=== PATIENT | female | born 1945 | race Caucasian/White ===

== ENCOUNTER 2018-08-03 11:24 | Inpatient (IN) | payer MEDICARE, MEDICAID ==
[~2018-08-03] VITALS: Ht 154.9 cm; Wt 128.0 kg
[2018-08-03] MEDS ORDERED: RANI150T4 PO (11:49)
[2018-08-03] MEDS ORDERED: FLUO40CA2 PO (11:49)
[2018-08-03] MEDS ORDERED: TRAZ150T62 PO (11:49)
[2018-08-03] MEDS ORDERED: LOSA100T7 PO (11:49)
[2018-08-03] MEDS ORDERED: DIPH1TAB6 PO (11:49)
[2018-08-03] MEDS ORDERED: BUPR150T73 PO (11:49)
[2018-08-03] MEDS ORDERED: QUET50TA PO (11:49)
[2018-08-03] MEDS ORDERED: ASPI1CPM9 PO (11:49)
[2018-08-03] MEDS ORDERED: COLE1TAB2 PO (11:49)
[2018-08-03] MEDS ORDERED: BENZ1TAB61 PO (11:49)
[2018-08-03] MEDS ORDERED: ARIP15TA3 PO (11:49)
[2018-08-03] MEDS ORDERED: LEVO50TA5 PO (11:49)
[2018-08-03] MEDS ORDERED: GABA300C10 PO (11:49)
--- NOTE | 2018-08-03 11:52 | NUR ---
pt bib ems for sob, pt visiting from the [place] and has been having difficulty breathing since her arrival in [place]. this morning pt states increased work of breathing and call ems. upon arriving on scene ems found pt to be 80% on room air with minimal air movement throughout her lungs. they administered 1 breathing treatment which improved her lung sounds and saturations, but pt was still having increased work of breathing so pt placed on cpap with marked improved noted. pt vital signs were stable throughout transport after interventions. pt states no pulmonary or cardiac history. pt placed on hospital cpap and on room monitor. iv started and labs drawn. awaiting resulst and poc. will continue to monitor.
[2018-08-03 11:58] LABS: BASOPHILS # (AUTO) 0.01 x10^3/uL (0-0.1); BASOPHILS % (AUTO) 0 % (0-1); EOSINOPHILS # (AUTO) 0.14 x10^3/uL (0-0.4); EOSINOPHILS % (AUTO) 1 % (1-7); LYMPHOCYTES # (AUTO) 1.26 x10^3/uL (1-3.4); LYMPHOCYTES % (AUTO) 11 % (22-44); MD NO; MEAN CORPUSCULAR HEMOGLOBIN 30.8 pg (27.0-34.8); MEAN CORPUSCULAR VOLUME 93.1 fL (80-100); MEAN PLATELET VOLUME 8.1 fL (7.4-10.4); MONOCYTES # (AUTO) 0.63 x10^3/uL (0.2-0.8); MONOCYTES % (AUTO) 6 % (2-9); NEUTROPHILS # (AUTO) 9.12 x10^3/uL (1.8-6.8); NEUTROPHILS % (AUTO) 82 % (42-75); PLATELET COUNT 196 x10^3/uL (130-400); RED BLOOD COUNT 4.13 x10^6/uL (3.82-5.3); RED CELL DISTRIBUTION WIDTH 13.5 % (9.6-15.2)
[2018-08-03 12:06] LABS: ALBUMIN 3.3 g/dL (3.4-5.0); ANION GAP 6 mmol/L (5-15); CALCIUM 8.1 mg/dL (8.5-10.1); CHLORIDE 110 mmol/L (98-107); CREATININE 1.65 mg/dL (0.55-1.02); PROTHROMBIN TIME 10.6 Seconds (9.6-11.5)
[2018-08-03 12:11] LABS: TROPONIN I 0.561 ng/mL (0.000-0.045)
--- NOTE | 2018-08-03 12:15 | NUR ---
PT RESTING COMFORTABLY IN BED WITH FAMILY AT BEDSIDE. VITAL SIGNS STABLE. NO SIGNS OF DISTRESS NOTED. WILL CONTINUE TO MONITOR.
[2018-08-03] MEDS ORDERED: PLEASE ENTER ALLERGIES MC SCH (12:30)
[2018-08-03] MEDS ORDERED: HEPARIN 25,000 UNITS/500ML PMX 500 ML IV PRN (12:30)
[2018-08-03] MEDS ORDERED: HEPARIN 5,000 UNITS/ML, 1ML IV PRN (12:30)
[2018-08-03] MEDS ORDERED: HEPARIN 5,000 UNITS/ML, 1ML IV ONE (12:30)
[2018-08-03] MEDS ORDERED: HEPARIN 5,000 UNITS/ML, 1ML ONE (12:36)
[2018-08-03] MEDS ORDERED: HEPARIN 25,000 UNITS/500ML PMX 500 ML ONE (12:36)
--- NOTE | 2018-08-03 12:45 | NUR ---
PT TO COMMODE WITH STANDBY ASSIST. NO INCIDENT NOTED. PT HELPED BACK TO BED AFTER VOIDING
--- NOTE | 2018-08-03 12:56 | NUR ---
PT TO RADIOLOGY FOR TESTING
--- NOTE | 2018-08-03 13:14 | NUR ---
REPORT TO ROXANA BARRY
--- NOTE | 2018-08-03 13:18 | NUR ---
SBAR REPORT RECEIVED FROM ASHA ALVAREZ. PT CARE ASSUMED. PT IN [place] AT THIS TIME.
--- NOTE | 2018-08-03 13:45 | NUR ---
PT RETURNED FROM [place], [place] AT BEDSIDE AT THIS TIME.
--- NOTE | 2018-08-03 14:26 | NUR ---
SBAR REPORT CALLED TO FLOOR [facility].
[2018-08-03] MEDS ORDERED: DOCUSATE 100 MG CAPSULE PO PRN (14:30)
[2018-08-03] MEDS ORDERED: ENALAPRILAT 1.25 MG/ML, 2ML IVPush PRN (14:30)
[2018-08-03] MEDS ORDERED: hydrALAzine 20 MG/ML, 1ML IVPush PRN (14:30)
[2018-08-03] MEDS ORDERED: BISACODYL 10 MG SUPP PR PRN (14:30)
[2018-08-03] MEDS ORDERED: ACETAMINOPHEN 325 MG TABLET PO PRN (14:30)
[2018-08-03] MEDS ORDERED: ONDANSETRON 2MG/ML, 2ML IVPush PRN (14:30)
[2018-08-03] MEDS ORDERED: ONDANSETRON ODT 4 MG PO PRN (14:30)
[2018-08-03] MEDS: DIPHENOXYLATE/ATROPINE TABLET PO SCH ×2 (17:49→22:17)
[2018-08-03 18:17] VITALS: BP 106/75
[2018-08-03 20:41] VITALS: BP 138/69
[2018-08-03] MEDS: BUPROPION SR 150 MG TABLET PO SCH (21:37)
[2018-08-03] MEDS: FAMOTIDINE 20 MG TABLET PO SCH (21:37)
[2018-08-03] MEDS: GABAPENTIN 300 MG CAPSULE PO SCH (21:37)
[2018-08-03] MEDS: TRAZODONE 150MG TABLET PO SCH (21:37)
[2018-08-03] MEDS: QUETIAPINE 25MG TABLET PO SCH (21:38)
[2018-08-03] MEDS: COLESTIPOL 1 GM TABLET PO SCH (22:17)
[2018-08-04 01:10] VITALS: BP 102/54
[2018-08-04 01:35] VITALS: BP 106/66
[2018-08-04 01:54] LABS: BASOPHILS # (AUTO) 0.02 x10^3/uL (0-0.1); BASOPHILS % (AUTO) 0 % (0-1); EOSINOPHILS # (AUTO) 0.13 x10^3/uL (0-0.4); EOSINOPHILS % (AUTO) 2 % (1-7); LYMPHOCYTES # (AUTO) 3.55 x10^3/uL (1-3.4); LYMPHOCYTES % (AUTO) 48 % (22-44); MD NO; MEAN CORPUSCULAR HEMOGLOBIN 31.1 pg (27.0-34.8); MEAN CORPUSCULAR HGB CONC 33.3 g/dL (32.4-35.8); MEAN CORPUSCULAR VOLUME 93.3 fL (80-100); MEAN PLATELET VOLUME 8.5 fL (7.4-10.4); MONOCYTES # (AUTO) 0.71 x10^3/uL (0.2-0.8); MONOCYTES % (AUTO) 10 % (2-9); NEUTROPHILS # (AUTO) 2.91 x10^3/uL (1.8-6.8); NEUTROPHILS % (AUTO) 40 % (42-75); PLATELET COUNT 167 x10^3/uL (130-400); RED BLOOD COUNT 3.76 x10^6/uL (3.82-5.3); RED CELL DISTRIBUTION WIDTH 13.7 % (9.6-15.2)
[2018-08-04 01:59] LABS: ALBUMIN 2.8 g/dL (3.4-5.0); ANION GAP 4 mmol/L (5-15); CALCIUM 7.5 mg/dL (8.5-10.1); CHLORIDE 111 mmol/L (98-107)
[2018-08-04 02:09] LABS: ALANINE AMINOTRANSFERASE 21 U/L (12-78); ALKALINE PHOSPHATASE 112 U/L (45-117); BILIRUBIN,TOTAL 0.3 mg/dL (0.2-1.0); CHOL/HDL RATIO 1.9; CHOLESTEROL, TOTAL 126 mg/dL (140-239); CREATININE 1.25 mg/dL (0.55-1.02); HDL CHOL % 54 % (28-40); HDL CHOLESTEROL (DIRECT) 68 mg/dL (40-60); LDL CHOLESTEROL,CALCULATED 42 mg/dL (54-169); LDL/HDL RATIO 0.6 (0.5-3.0); TOTAL PROTEIN 6.4 g/dL (6.4-8.2); TRIGLYCERIDES 79 mg/dL (50-200); VLDL CHOLESTEROL 16 mg/dL (0-25)
[2018-08-04 07:12] VITALS: BP 102/54
[2018-08-04 07:33] LABS: CULTURE INDICATED? YES; MICROSCOPIC INDICATED
[2018-08-04] MEDS: ARIPIPRAZOLE 15 MG TABLET PO SCH (08:53)
[2018-08-04] MEDS: GABAPENTIN 300 MG CAPSULE PO SCH ×2 (08:53→20:47)
[2018-08-04] MEDS: COLESTIPOL 1 GM TABLET PO SCH ×2 (08:53→20:46)
[2018-08-04] MEDS: FAMOTIDINE 20 MG TABLET PO SCH ×2 (08:53→20:47)
[2018-08-04] MEDS: LOSARTAN 50MG TABLET PO SCH (08:54)
[2018-08-04] MEDS: QUETIAPINE 25MG TABLET PO SCH ×2 (08:54→20:47)
[2018-08-04] MEDS: FLUOXETINE HCL 20 MG CAPSULE PO SCH (08:54)
[2018-08-04] MEDS: LEVOTHYROXINE 50 MCG TABLET PO SCH (08:54)
[2018-08-04] MEDS: BUPROPION SR 150 MG TABLET PO SCH ×2 (08:54→20:48)
[2018-08-04] MEDS: SENNA/DOCUSATE TABLET PO SCH (08:55)
[2018-08-04] MEDS ORDERED: TEMPLATE NON-FORMULARY MED. (Ranitidine Hcl** 150 MG) PO SCH (09:00)
[2018-08-04] MEDS: BENZTROPINE 1 MG TABLET PO SCH (09:00)
[2018-08-04] MEDS: DIPHENOXYLATE/ATROPINE TABLET PO SCH ×3 (10:38→20:47)
[2018-08-04 12:25] VITALS: BP 103/64
[2018-08-04 20:25] VITALS: BP 104/66
[2018-08-04] MEDS: TRAZODONE 150MG TABLET PO SCH (20:46)
[2018-08-04] MEDS: APIXABAN 5 MG TABLET PO SCH (20:47)
[2018-08-05 01:46] VITALS: BP 98/55
[2018-08-05 05:45] LABS: ANION GAP 7 mmol/L (5-15); CALCIUM 7.6 mg/dL (8.5-10.1); CHLORIDE 111 mmol/L (98-107); CREATININE 1.88 mg/dL (0.55-1.02)
[2018-08-05 06:50] VITALS: BP 122/65
[2018-08-05] MEDS: SENNA/DOCUSATE TABLET PO SCH (08:29)
[2018-08-05] MEDS: SODIUM CHLORIDE 0.9% 1,000 ML IV SCH ×3 (08:33→21:25)
[2018-08-05] MEDS: DIPHENOXYLATE/ATROPINE TABLET PO SCH ×3 (08:34→20:48)
[2018-08-05] MEDS: COLESTIPOL 1 GM TABLET PO SCH ×2 (08:34→20:47)
[2018-08-05] MEDS: APIXABAN 5 MG TABLET PO SCH ×2 (08:34→20:48)
[2018-08-05] MEDS: FLUOXETINE HCL 20 MG CAPSULE PO SCH (08:34)
[2018-08-05] MEDS: BENZTROPINE 1 MG TABLET PO SCH (08:34)
[2018-08-05] MEDS: BUPROPION SR 150 MG TABLET PO SCH ×2 (08:34→20:49)
[2018-08-05] MEDS: LEVOTHYROXINE 50 MCG TABLET PO SCH (08:35)
[2018-08-05] MEDS: QUETIAPINE 25MG TABLET PO SCH ×2 (08:35→20:49)
[2018-08-05] MEDS: FAMOTIDINE 20 MG TABLET PO SCH (08:35)
[2018-08-05] MEDS: GABAPENTIN 300 MG CAPSULE PO SCH ×2 (08:35→20:48)
[2018-08-05] MEDS: LOSARTAN 50MG TABLET PO SCH (08:35)
[2018-08-05] MEDS: ARIPIPRAZOLE 15 MG TABLET PO SCH (08:35)
[2018-08-05 12:59] VITALS: BP 127/78
[2018-08-05 19:03] VITALS: BP 96/54
[2018-08-05] MEDS: TRAZODONE 150MG TABLET PO SCH (20:47)
[2018-08-05] MEDS: CEFDINIR 300 MG CAPSULE PO SCH (20:48)
[2018-08-06 01:26] VITALS: BP 108/53
[2018-08-06 05:50] LABS: ANION GAP 7 mmol/L (5-15); CALCIUM 7.8 mg/dL (8.5-10.1); CHLORIDE 114 mmol/L (98-107); CREATININE 1.44 mg/dL (0.55-1.02)
[2018-08-06 07:52] VITALS: BP 107/58
[2018-08-06] MEDS: COLESTIPOL 1 GM TABLET PO SCH ×2 (08:29→22:09)
[2018-08-06] MEDS: CEFDINIR 300 MG CAPSULE PO SCH ×2 (08:29→22:10)
[2018-08-06] MEDS: DIPHENOXYLATE/ATROPINE TABLET PO SCH ×3 (08:29→22:10)
[2018-08-06] MEDS: FLUOXETINE HCL 20 MG CAPSULE PO SCH (08:30)
[2018-08-06] MEDS: LOSARTAN 50MG TABLET PO SCH (08:30)
[2018-08-06] MEDS: APIXABAN 5 MG TABLET PO SCH ×2 (08:30→22:09)
[2018-08-06] MEDS: BUPROPION SR 150 MG TABLET PO SCH ×2 (08:30→22:09)
[2018-08-06] MEDS: BENZTROPINE 1 MG TABLET PO SCH (08:31)
[2018-08-06] MEDS: GABAPENTIN 300 MG CAPSULE PO SCH ×2 (08:31→22:10)
[2018-08-06] MEDS: FAMOTIDINE 20 MG TABLET PO SCH (08:31)
[2018-08-06] MEDS: LEVOTHYROXINE 50 MCG TABLET PO SCH (08:31)
[2018-08-06] MEDS: ARIPIPRAZOLE 15 MG TABLET PO SCH (08:31)
[2018-08-06] MEDS: QUETIAPINE 25MG TABLET PO SCH ×2 (08:31→22:10)
[2018-08-06] MEDS: SENNA/DOCUSATE TABLET PO SCH (08:34)
[2018-08-06 14:35] VITALS: BP 98/43
[2018-08-06 19:15] VITALS: BP 107/64
[2018-08-06] MEDS: TRAZODONE 150MG TABLET PO SCH (22:10)
[2018-08-07 02:19] VITALS: BP 109/60
[2018-08-07 08:07] VITALS: BP 125/61
[2018-08-07] MEDS: SENNA/DOCUSATE TABLET PO SCH (08:55)
[2018-08-07] MEDS: LOSARTAN 50MG TABLET PO SCH (09:00)
[2018-08-07] MEDS: LEVOTHYROXINE 50 MCG TABLET PO SCH (09:00)
[2018-08-07] MEDS ORDERED: LEVOTHYROXINE 25 MCG TABLET ONE (09:01)
[2018-08-07] MEDS: DIPHENOXYLATE/ATROPINE TABLET PO SCH ×3 (09:08→21:17)
[2018-08-07] MEDS: FLUOXETINE HCL 20 MG CAPSULE PO SCH (09:11)
[2018-08-07] MEDS: QUETIAPINE 25MG TABLET PO SCH ×2 (09:11→21:17)
[2018-08-07] MEDS: BENZTROPINE 1 MG TABLET PO SCH (09:11)
[2018-08-07] MEDS: GABAPENTIN 300 MG CAPSULE PO SCH ×2 (09:11→21:17)
[2018-08-07] MEDS: ARIPIPRAZOLE 15 MG TABLET PO SCH (09:12)
[2018-08-07] MEDS: FAMOTIDINE 20 MG TABLET PO SCH (09:13)
[2018-08-07] MEDS: BUPROPION SR 150 MG TABLET PO SCH ×2 (09:13→21:17)
[2018-08-07] MEDS: APIXABAN 5 MG TABLET PO SCH ×2 (09:13→21:17)
[2018-08-07] MEDS: CEFDINIR 300 MG CAPSULE PO SCH ×2 (09:13→21:17)
[2018-08-07] MEDS: COLESTIPOL 1 GM TABLET PO SCH ×2 (09:18→21:17)
[2018-08-07 14:00] VITALS: BP 105/61
[2018-08-07 19:48] VITALS: BP 106/66
[2018-08-07] MEDS: TRAZODONE 150MG TABLET PO SCH (21:17)
[2018-08-08 01:31] VITALS: BP 108/69
[2018-08-08 07:39] VITALS: BP 115/64
[2018-08-08 08:29] LABS: ANION GAP 5 mmol/L (5-15); CALCIUM 7.6 mg/dL (8.5-10.1); CHLORIDE 110 mmol/L (98-107); CREATININE 1.18 mg/dL (0.55-1.02)
[2018-08-08] MEDS: SENNA/DOCUSATE TABLET PO SCH (09:00)
[2018-08-08] MEDS: LEVOTHYROXINE 50 MCG TABLET PO SCH (09:00)
[2018-08-08] MEDS ORDERED: LEVOTHYROXINE 25 MCG TABLET ONE (09:08)
[2018-08-08] MEDS: CEFDINIR 300 MG CAPSULE PO SCH ×2 (09:14→21:06)
[2018-08-08] MEDS: FLUOXETINE HCL 20 MG CAPSULE PO SCH (09:15)
[2018-08-08] MEDS: BENZTROPINE 1 MG TABLET PO SCH (09:15)
[2018-08-08] MEDS: APIXABAN 5 MG TABLET PO SCH ×2 (09:15→21:06)
[2018-08-08] MEDS: COLESTIPOL 1 GM TABLET PO SCH ×2 (09:15→21:45)
[2018-08-08] MEDS: BUPROPION SR 150 MG TABLET PO SCH ×2 (09:16→21:07)
[2018-08-08] MEDS: QUETIAPINE 25MG TABLET PO SCH ×2 (09:16→21:07)
[2018-08-08] MEDS: GABAPENTIN 300 MG CAPSULE PO SCH ×2 (09:16→21:07)
[2018-08-08] MEDS: LOSARTAN 50MG TABLET PO SCH (09:16)
[2018-08-08] MEDS: FAMOTIDINE 20 MG TABLET PO SCH (09:19)
[2018-08-08] MEDS: ARIPIPRAZOLE 15 MG TABLET PO SCH (09:19)
[2018-08-08] MEDS: DIPHENOXYLATE/ATROPINE TABLET PO SCH ×3 (09:25→21:45)
[2018-08-08 12:47] VITALS: BP 109/60
[2018-08-08] MEDS ORDERED: APIX5TAB PO (13:19)
[2018-08-08] MEDS ORDERED: CEFD300C37 PO (13:19)
[2018-08-08 19:50] VITALS: BP 112/73
[2018-08-08] MEDS ORDERED: FAMOTIDINE 20 MG TABLET PO SCH (21:00)
[2018-08-08] MEDS: TRAZODONE 150MG TABLET PO SCH (21:07)
[2018-08-08 21:31] VITALS: BP 120/61
[2018-08-11] MEDS ORDERED: APIXABAN 5 MG TABLET PO SCH (21:00)
== END 2018-08-08 21:40 | disposition home or self-care (01) | DRG 175 ==
LOC: ED 14:20 → EDIP 14:41 → 5SO 14:47 → 4NOR 08-06 13:56 → 4EST 08-08 06:47 → 4NOR 08-08 06:47
PROVIDERS: ADMIT Hospitalist; ATTEND Hospitalist
PROC: 5A09357 Assistance with Respiratory Ventilation, Less than 24 Consecutive Hours, Continuous Positive Airway Pressure (ICD-10-PCS; principal; 2018-08-03)
DX: I26.99 Other pulmonary embolism without acute cor pulmonale (principal); J96.01 Acute respiratory failure with hypoxia; N17.9 Acute kidney failure, unspecified; E87.2 Acidosis; Z68.43 Body mass index [BMI] 50.0-59.9, adult; E03.9 Hypothyroidism, unspecified; E78.00 Pure hypercholesterolemia, unspecified; E78.5 Hyperlipidemia, unspecified; Z96.653 Presence of artificial knee joint, bilateral; F31.9 Bipolar disorder, unspecified; I10 Essential (primary) hypertension; E66.01 Morbid (severe) obesity due to excess calories; I45.10 Unspecified right bundle-branch block; K21.9 Gastro-esophageal reflux disease without esophagitis; K58.9 Irritable bowel syndrome, unspecified; M79.7 Fibromyalgia; Z79.01 Long term (current) use of anticoagulants; Z79.899 Other long term (current) drug therapy; Z86.73 Personal history of transient ischemic attack (TIA), and cerebral infarction without residual deficits; Z98.84 Bariatric surgery status; Z90.49 Acquired absence of other specified parts of digestive tract
CPT/HCPCS: 36415; 36600; 71045; 78582; 80048; 80053; 80061; 81001; 82040; 82803; 83605; 83735; 83880; 84100; 84439; 84443; 84484; 85025; 85520; 85610; 85730; 87040; 87077; 87086; 87186; 93005; 93306; 93970; 94660; 96374; 99291; G0378; J1644; A9540; A9558; J7030